=== PATIENT | female | born 1950 | race Caucasian/White ===

== ENCOUNTER → 2016-10-01 | Outpatient (CLI) | payer MEDICARE, OTHER ==
[~2016-10-01] MED LIST: ACET-2469 PO; ASPI-999 PO; METO-270 PO; PANT40TA2 PO
--- NOTE | 2016-10-01 10:58 | Diagnostic Imaging Report ---
EXAMINATION: Right breast ultrasound. INDICATION: Right breast pain. FINDINGS: The four-quadrants in the retroareolar region of the right breast were scanned with no abnormality identified. IMPRESSION: Negative study. BI-RADS 1. ACR BI-RADS Category 1: Negative. Dictated by: Dictated on workstation # [id number]
--- NOTE | 2016-10-01 19:35 | Diagnostic Imaging Report ---
EXAMINATION: Bilateral diagnostic mammogram with tomographic evaluation. INDICATION: Right breast pain. COMPARISON: 01/06/20 15. The current study was also evaluated with a Computer Aided Detection (CAD) system. FINDINGS: The breasts are composed of generally scattered fibroglandular densities, slightly more dense in the retroareolar regions bilaterally. This is similar to 2015 exam. Areas of particularly increased densities within the retroareolar region of the right breast and specifically in the right MLO view were evaluated with tomographic assessment with no convincing underlying mass. Allowing for technique and positional differences, no suspicious change is seen. IMPRESSION: No significant change. Ultrasound evaluation for the area of pain in the right breast is pending. ACR BI-RADS Category 0: Incomplete. (Needs additional imaging evaluation). Result letter will be mailed to the patient. Note: At least 10% of breast cancer is not imaged by mammography. Dictated by: Dictated on workstation # [id number]
== END ==
LOC: RAD 08:16
PROVIDERS: ATTEND Nurse Practitioner Family
DX: N64.4 Mastodynia (principal)
CPT/HCPCS: 76641; 77066

== ENCOUNTER → 2017-01-16 | Outpatient (CLI) | payer MEDICARE, OTHER ==
[~2017-01-16] MED LIST changes: +CATHETER FLUSH 10 ML SYR IV PRN
[2017-01-16 09:43] VITALS: BP 155/77
[2017-01-16 09:51] VITALS: BP 167/84
--- NOTE | 2017-01-18 00:31 | STRESS TEST ---
DATE OF SERVICE: 01/16/2017 EXERCISE MYOVIEW STRESS TEST REPORT REFERRING PHYSICIAN: Dr. Dean. Baseline heart rate is 74. Baseline blood pressure is 137/75. Baseline EKG sinus rhythm with no ischemic changes. In summary, the patient was injected with 10.98 mCi of technetium-99 Myoview and the resting images were obtained, then the patient started exercising with a baseline heart rate, blood pressure and EKG mentioned above. The patient was able to exercise for 5 minutes on standard Shabbir protocol. With peak exercise level, EKG was showing minimal nondiagnostic changes. Blood pressure was 167/73. During recovery, heart rate and blood pressure returned to baseline. EKG returned to baseline. The resting and stress images were reviewed and compared in the short axis, horizontal long axis, and vertical long axis views. Review of the images showed good radiotracer uptake with no significant ischemia or infarction. SSS is 1. SDS is 1. TID value is 1.04. On the gated images, the left ventricle appeared to be in normal size with normal contractility, calculated ejection fraction is 78%. CONCLUSION: 1. Good exercise tolerance. A total of 5 minutes of standard Shabbir protocol, total of 7 METS achieving 92% of maximum expected heart rate. 2. Appropriate heart rate and blood pressure response to exercise returned to baseline during recovery. 3. No ischemia or infarction on SPECT images. 4. Normal left ventricular size with normal contractility, calculated ejection fraction 78%. Job ID: [id number] DocumentID: [id number] Dictated Date: 01/16/2017 14:49:38 [employer]pper Date: 01/16/2017 16:00:15 Dictated By: EMERSON ALVARENGA MD
== END ==
LOC: CARD 07:58
PROVIDERS: ATTEND Internal Medicine Cardiovascular Disease
DX: R07.89 Other chest pain (principal); R00.2 Palpitations; R06.02 Shortness of breath; F41.8 Other specified anxiety disorders; Z87.891 Personal history of nicotine dependence
CPT/HCPCS: 78452; 93017

== ENCOUNTER → 2017-10-04 | Outpatient (CLI) | payer MEDICARE, OTHER ==
[~2017-10-04] MED LIST changes: -CATHETER FLUSH 10 ML SYR IV PRN; -METO-270 PO; +METO-387 PO
--- NOTE | 2017-10-04 15:55 | Diagnostic Imaging Report ---
INDICATION: Routine screening. COMPARISON: 10/01/2016 and 01/05/2015. TECHNIQUE: 2D and 3D bilateral screening mammography was performed with CAD. FINDINGS: Scattered fibroglandular densities are identified bilaterally. A small density has developed in the upper and outer aspect of the right breast at mid depth. This may represent a small cyst. Additional views and ultrasound are recommended. The left breast is unremarkable. No suspicious calcifications are seen. IMPRESSION: Right breast density. Additional views and/or ultrasound are recommended for further evaluation. ACR BI-RADS Category 0: Incomplete. (Needs additional imaging evaluation). Result letter will be mailed to the patient. Note: At least 10% of breast cancer is not imaged by mammography. Dictated by: Dictated on workstation # [id number]
== END ==
LOC: RAD 13:21
PROVIDERS: ATTEND Nurse Practitioner Family
DX: Z12.31 Encounter for screening mammogram for malignant neoplasm of breast (principal)
CPT/HCPCS: 77067

== ENCOUNTER → 2017-10-23 | Outpatient (CLI) | payer MEDICARE, OTHER ==
--- NOTE | 2017-10-23 13:56 | Diagnostic Imaging Report ---
Indication: Right breast density. Patient presents for additional views. Correlation is made with recent screening study from 10/04/2017. Unilateral right 2-D and 3-D diagnostic mammography was performed including spot compression CC and MLO as well as conventional 90 degree lateral view. There is a circumscribed density in the outer portion of the right breast approximately 5-6 cm from the nipple on the CC view. No definite corresponding density on spot compression MLO or 90 degree lateral view is seen. This could represent fibroglandular tissue. No suspicious calcifications are seen. Impression: BI-RADS zero Right breast density only seen on the CC view. Further evaluation of the outer right breast ultrasound is recommended and will be performed today. ACR BI-RADS Category 0: Incomplete. (Needs additional imaging evaluation). Result letter will be mailed to the patient. Note: At least 10% of breast cancer is not imaged by mammography. Dictated by: Dictated on workstation # [id number]
--- NOTE | 2017-10-23 14:13 | Diagnostic Imaging Report ---
INDICATION: Right breast density. Correlation is made with diagnostic mammogram earlier the same day. Sonographic interrogation of the 9-12 o'clock location as well as retroareolar and axillary portion of the right breast was performed. No solid or cystic mass is seen. No sonographic abnormality is identified. IMPRESSION: BI-RADS category one No sonographic abnormality is seen. Patient may return to routine annual screening mammography. ACR BI-RADS Category 1: Negative. Dictated by: Dictated on workstation # [id number]
== END ==
LOC: RAD 13:11
PROVIDERS: ATTEND Family Medicine
DX: R92.2 Inconclusive mammogram (principal)

== ENCOUNTER → 2018-12-23 | Outpatient (CLI) | payer MEDICARE, OTHER | LOC: CARD 12:52 | PROVIDERS: ATTEND Internal Medicine Cardiovascular Disease | DX: I08.1 Rheumatic disorders of both mitral and tricuspid valves (principal); F41.8 Other specified anxiety disorders | CPT/HCPCS: 93306 ==

== ENCOUNTER → 2018-12-30 | Outpatient (CLI) | payer MEDICARE, OTHER ==
--- NOTE | 2018-12-30 16:24 | Diagnostic Imaging Report ---
INDICATION: Routine screening. COMPARISON: 10/04/2017 and 10/01/2016. TECHNIQUE: 2D and 3D bilateral screening mammography was performed with CAD. FINDINGS: Scattered fibroglandular densities are identified bilaterally. There is a density in the right breast at mid depth in the upper and outer aspect appearing more prominent than on the prior studies. Additional views are recommended. The left breast is unremarkable. No suspicious calcifications are seen. The axillae are unremarkable. IMPRESSION: Right breast density. Additional views are recommended for further evaluation. ACR BI-RADS Category 0: Incomplete. (Needs additional imaging evaluation). Result letter will be mailed to the patient. Note: At least 10% of breast cancer is not imaged by mammography. Dictated by: Dictated on workstation # [id number]
== END ==
LOC: RAD 13:26
PROVIDERS: ATTEND Nurse Practitioner Family
DX: Z12.31 Encounter for screening mammogram for malignant neoplasm of breast (principal); R92.8 Other abnormal and inconclusive findings on diagnostic imaging of breast
CPT/HCPCS: 77067

== ENCOUNTER → 2019-01-07 | Outpatient (CLI) | payer MEDICARE, OTHER ==
--- NOTE | 2019-01-07 09:37 | Diagnostic Imaging Report ---
INDICATION: Right breast density. COMPARISON: Correlation is made with the diagnostic mammogram from earlier this same day and a screening mammogram from 12/30/2018. FINDINGS: Interrogation of the upper-outer right breast was performed. There are two small circumscribed hypoechoic nodules in the upper-outer right breast. At the 10 o'clock location 6 cm from the nipple, an ovoid circumscribed nodule measures 6 mm x 2 mm x 3 mm. This has benign features and may represent a small cyst or lymph node. A second nodule at 10:30 location 6 cm from the nipple is noted measuring 6 mm x 3 mm x 5 mm. This is too small to characterize but has fairly benign features. No shadowing or internal vascularity is seen. No other masses are identified. IMPRESSION: There are subcentimeter hypoechoic nodules in the upper outer right breast. One of these may account for the density noted mammographically. These have fairly benign features. Even so, a followup right mammogram and right breast ultrasound in 6 months are recommended to confirm stability. ACR BI-RADS Category 3: Probably benign findings. Result letter will be mailed to the patient. Note: At least 10% of breast cancer is not imaged by mammography. Dictated by: Dictated on workstation # [id number]
--- NOTE | 2019-01-07 16:04 | Diagnostic Imaging Report ---
INDICATION: Right breast density. Patient presents for additional views. Correlation is made with screening study from 12/30/2018. Unilateral right 2-D and 3-D diagnostic mammography was performed including spot compression CC and MLO as well as conventional 90 degree lateral view. No definite underlying mass in the upper outer right breast is seen although the density does mildly persist. Further evaluation of the upper outer right breast 5 cm from the nipple is recommended with ultrasound. No suspicious calcifications are seen. IMPRESSION: BI-RADS 0 Persistent mild density upper outer right breast mid depth. Further evaluation with ultrasound of this area is recommended and will be performed today. ACR BI-RADS Category 0: Incomplete. (Needs additional imaging evaluation). Result letter will be mailed to the patient. Note: At least 10% of breast cancer is not imaged by mammography. Dictated by: Dictated on workstation # [id number]
== END ==
LOC: RAD 08:13
PROVIDERS: ATTEND Nurse Practitioner Family
DX: N63.11 Unspecified lump in the right breast, upper outer quadrant (principal); R92.2 Inconclusive mammogram

== ENCOUNTER → 2020-01-21 | Outpatient (CLI) | payer MEDICARE, OTHER ==
[~2020-01-21] MED LIST changes: -ACET-2469 PO; +ACET-3075 PO; -METO-387 PO; +MTP25TSR PO
--- NOTE | 2020-01-21 13:09 | Diagnostic Imaging Report ---
INDICATION: Followup right breast density. COMPARISON: 12/30/2018 and 10/04/2017. TECHNIQUE: 2D and 3D bilateral diagnostic mammography was performed with CAD. FINDINGS: Both breasts remain heterogeneously dense, limiting the sensitivity of mammography. The nodular density noted in the upper and outer aspect of the right breast at mid depth on the prior study is much less apparent on today's study. No discrete mass or malignant appearing microcalcifications are seen. The axillae are unremarkable. IMPRESSION: The right breast density noted previously is less prominent on today's study. Even so, directed sonographic interrogation of the upper outer right breast is recommended and will be performed today. ACR BI-RADS Category 0: Incomplete. (Needs additional imaging evaluation). Result letter will be mailed to the patient. Note: At least 10% of breast cancer is not imaged by mammography. Dictated by: Dictated on workstation # [id number]
--- NOTE | 2020-01-21 14:31 | Diagnostic Imaging Report ---
INDICATION: Followup right breast densities. COMPARISON: Correlation is made with the prior right breast ultrasound from 01/07/2019 as well as the diagnostic mammogram from earlier today. FINDINGS: Interrogation of the upper outer right breast was performed. Tiny circumscribed hypoechoic nodules at the 10:30 location 6 cm from the nipple are again noted. These measure approximately 5 and 6 mm in size, unchanged from the prior exam. No new mass is detected. IMPRESSION: Benign hypoechoic nodules at the 10 to 10:30 location of the right breast, stable when compared with the exam of 1 year earlier. The patient may return to routine annual screening mammography. ACR BI-RADS Category 2: Benign findings. Dictated by: Dictated on workstation # [id number]
== END ==
LOC: RAD 12:45
PROVIDERS: ATTEND Family Medicine
DX: N63.11 Unspecified lump in the right breast, upper outer quadrant (principal)
CPT/HCPCS: 76642; 77066; G0279; 77062

== ENCOUNTER → 2020-01-26 | Outpatient (CLI) | payer MEDICARE, OTHER ==
--- NOTE | 2020-01-26 10:38 | Diagnostic Imaging Report ---
INDICATION: Postmenopausal female. COMPARISON: None. FINDINGS: AP Spine L2-L4: [BMD (g/cm2): 0.770] [T-Score: -3.6] [Z-Score: -1.7] [BMD Previous: na] [BMD % Change: na] LT Hip Neck: [BMD (g/cm2): 0.759] [T-Score: -2.0] [Z-Score: -0.1] LT Hip Total: [BMD (g/cm2):0.828] [T-Score:-1.4] [Z-Score: 0.3] [BMD Previous: na] [BMD % Change: na] RT Hip Neck: [BMD (g/cm2):0.803] [T-Score:-1.7] [Z-Score:0.2] RT Hip Total: [BMD (g/cm2):0.820] [T-score:-1.5] [Z-Score:0.2] [BMD Previous:na] [BMD % Change:na] *Indicates significant change from prior examination based on 95% confidence level. World Health Organization criteria for BMD interpretation classify patients as Normal (T-score at or above -1.0), Osteopenic (T-score between -1.0 and -2.5) or Osteoporotic (T-score at or below -2.5). LIMITATIONS AND MODIFICATION: None. FRACTURE RISK (FRAX SCORE): The ten year probability of (%): Major Osteoporotic Fracture: [NA] Hip Fracture: [NA] IMPRESSION: 1. Osteoporosis. 2. Baseline examination. 3. See below National Osteoporosis Foundation guidelines on when to potentially initiate pharmacologic therapy. Based on the National Osteoporosis Foundation Guidelines, pharmacologic treatment should be initiated in any of the following, unless clinical conditions suggest otherwise: * Any patient with prior fragility fracture of the hip or vertebrae. A spine fracture indicates 5X risk for subsequent spine fracture and 2X risk for subsequent hip fracture. * Osteoporosis (T-score <-2.5). * Postmenopausal women and men age 50 and older with low bone mass/osteopenia (T-score between -1.0 and -2.5) by DXA and 10-year major osteoporotic fracture greater than 20% or a 10-year probability of hip fracture greater than 3%. These fracture risks are supplied above in the FRAX score, if applicable. * Clinician judgement and/or patient preferences may indicate treatment for people with 10-year fracture probabilities above or below these levels. Dictated by: Dictated on workstation # [id number]
== END ==
LOC: RAD 09:30
PROVIDERS: ATTEND Family Medicine
DX: M81.0 Age-related osteoporosis without current pathological fracture (principal); N63.10 Unspecified lump in the right breast, unspecified quadrant
CPT/HCPCS: 77080

== ENCOUNTER → 2021-01-23 | Outpatient (CLI) | payer MEDICARE, OTHER ==
--- NOTE | 2021-01-23 13:17 | Diagnostic Imaging Report ---
INDICATION: Routine screening. COMPARISON: 01/21/2020 and 12/30/2018. TECHNIQUE: 2D and 3D bilateral screening mammography was performed with CAD. FINDINGS: Both breasts are heterogeneously dense, limiting the sensitivity of mammography. The parenchymal pattern is stable. No mass or malignant-appearing microcalcifications are seen. The axillae are unremarkable. IMPRESSION: No mammographic features suspicious for malignancy are identified. ACR BI-RADS Category 1: Negative. Result letter will be mailed to the patient. Note: At least 10% of breast cancer is not imaged by mammography. Dictated by: Dictated on workstation # [id number]
== END ==
LOC: RAD 11:18
PROVIDERS: ATTEND Family Medicine
DX: Z12.31 Encounter for screening mammogram for malignant neoplasm of breast (principal); Z78.0 Asymptomatic menopausal state
CPT/HCPCS: 77063; 77067

== ENCOUNTER → 2021-01-23 | Outpatient (CLI) | payer MEDICARE, OTHER | LOC: CARD 12:00 | PROVIDERS: ATTEND Physician Assistant | DX: I35.1 Nonrheumatic aortic (valve) insufficiency (principal); I10 Essential (primary) hypertension; I25.10 Atherosclerotic heart disease of native coronary artery without angina pectoris | CPT/HCPCS: 93306 ==

== ENCOUNTER → 2021-08-21 | Outpatient (CLI) | payer MEDICARE ==
[~2021-08-21] VITALS: Ht 154 cm; Wt 56.0 kg
[~2021-08-21] MED LIST changes: +CATHETER FLUSH 10 ML SYR IVP PRN
[2021-08-21 09:25] VITALS: BP 142/70
--- NOTE | 2021-08-21 11:38 | Cardiology Stress Test Report ---
Stress Test Report Date of Procedure/Referring: Date of Procedure: Aug 21, 2021 PCP Jerry Dean MD Admitting Physician Admitting Physician: Attending Physician: Flavio Roberts MD Indications: HTN Baseline Heart Rate: 48 Baseline Blood Pressure: Blood Pressure Systolic: 142 Blood Pressure Diastolic: 70 Vital Signs Date Time Temp Pulse Resp B/P (MAP) Pulse Ox O2 Delivery O2 Flow Rate FiO2 08/21/21 09:25 52 16 142/70 (94) 98 Room Air Baseline Vital Signs Vital Signs Date Time Temp Pulse Resp B/P (MAP) Pulse Ox O2 Delivery O2 Flow Rate FiO2 08/21/21 09:25 52 16 142/70 (94) 98 Room Air Baseline EKG: Baseline EKG: NSR Summary: After explaining the procedure and details to the patient, she signed the consent and was brought to the stress nuclear laboratory. Patient exercised on standard Shabbir protocol, EKG, heart rate and blood pressure were monitored continuously, resting and stress doses of radio tracer were injected, imaging was acquired and reviewed in the short axis, horizontal long axis and vertical long axis views Patient was able to exercise for a total of 7 minutes on Shabbir protocol, METs 7.7 Maximum heart rate 157 Maximum blood pressure 158/84 Stress EKG, Minimal nondiagnostic changes Recovery EKG, Return to baseline TID: 1.17 SSS: 2 SDS: 2 EF: 66 Conclusion: 1. Good exercise tolerance for a total of 7 minutes on standard Shabbir protocol, 7.7 METS achieving 100% of maximum expected heart rate 2. Appropriate heart rate response to exercise with frequent PVCs and ventricular bigeminy noted during exercise return to baseline during recovery 3. Appropriate blood pressure response to exercise return to baseline during recovery 4. No significant ischemia or infarction noted on SPECT images 5. Normal left ventricular size, ejection fraction 66% Copy Copies To 1: JERRY DEAN MD, BASHAR J MD Aug 21, 2021 11:38
== END ==
LOC: CARD 08:45
PROVIDERS: ATTEND Internal Medicine Cardiovascular Disease
DX: I10 Essential (primary) hypertension (principal); I25.10 Atherosclerotic heart disease of native coronary artery without angina pectoris
CPT/HCPCS: 78452; 93017; A9502